=== PATIENT | male | born 1990 | race Caucasian/White ===

== ENCOUNTER 2018-11-11 04:19 | Emergency (ER) | payer OTHER ==
[~2018-11-11] VITALS: Ht 177.8 cm; Wt 95.3 kg
--- NOTE | 2018-11-11 04:35 | NUR ---
BIB SELF FROM HOME. AAOX4. BREATHING EVEN AND UNLABORED. AMBULATORY. C/O L CHEST PAIN SINCE 11PM, FEELING OF PRESSURE AND TIGHTNESS CURRENLTY AT 3/10. 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 PAIN RADIATES TO NECK. PT ALSO REPORTS TACHYCARDIA WHICH IS NOT PRESENT AT THE TIME OF ASSESSMENT. PT REPORTS FEELING NAUSEAS AND SOB PRIOR TO ARRIVAL. NON NOTED DURING ASSESSMENT. MD AT BEDSIDE FOR EVAL. AWAITING ORDERS
--- NOTE | 2018-11-11 04:35 | NUR ---
Note undone in EDM - 11/11/18 at 0506 by DAISY BIB SELF FROM HOME. AAOX4. BREATHING EVEN AND UNLABORED. AMBULATORY. C/O L CHEST PAIN SINCE 11PM, FEELING OF PRESSURE AND TIGHTNESS CURRENLTY AT 3/10. 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 PAIN RADIATES TO NECK. PT REPORTS FEELING NAUSEAS AND SOB PRIOR TO ARRIVAL. NON NOTED DURING ASSESSMENT. MD AT BEDSIDE FOR EVAL. AWAITING ORDERS
--- NOTE | 2018-11-11 04:50 | NUR ---
IV LINE OBTAINED ON R AC 18G. BLOOD DRAWN AND GIVEN TO FREELANCE TRANSLATOR AT BEDSIDE.
--- NOTE | 2018-11-11 04:52 | NUR ---
EMT AT BEDSIDE FOR EKG
[2018-11-11 04:56] LABS: BASOPHILS # (AUTO) 0.1 /CMM (0.0-0.2); BASOPHILS % (AUTO) 0.7 % (0.0-2.0); HEMATOCRIT 46 % (39-51); HEMOGLOBIN 16.4 g/dL (13.5-17.5); LYMPHOCYTES # (AUTO) 3.7 /CMM (0.8-4.8); MEAN CORPUSCULAR HGB CONC 35 g/dl (31.0-36.0); MEAN CORPUSCULAR VOLUME 94 fL (80-96); MONOCYTES # (AUTO) 0.9 /CMM (0.1-1.30); MONOCYTES % (AUTO) 9.5 % (2.0-12.0); NEUTROPHILS # (AUTO) 4.5 /CMM (1.8-8.9); NEUTROPHILS % (AUTO) 46.8 % (43.0-81.0); PLATELET COUNT (AUTO) 245 /CMM (150-450); RED BLOOD CELL COUNT(AUTO) 4.92 MIL/uL (4.5-6.0); WHITE BLOOD COUNT (AUTO) 9.6 K/uL (4.3-11.0)
[2018-11-11 05:04] LABS: CARBON DIOXIDE 28 mmol/L (21-32); CHLORIDE 102 mmol/L (98-107); CREATININE 1.1 mg/dL (0.6-1.3); GLUCOSE 128 mg/dL (74-106); POTASSIUM 3.6 mmol/L (3.5-5.1); SODIUM SERUM 140 mmol/L (136-145); UREA NITROGEN, BLOOD 19 mg/dL (7-18)
[2018-11-11] MEDS ORDERED: IOHEXOL-350 100 ML VIAL IV ONE (05:15)
[2018-11-11] MEDS ORDERED: CT SWABBABLE VALVE TRANS SET 1 EA INFUS.SET MC ONE (05:16)
[2018-11-11] MEDS ORDERED: IV NS 0.9% 250 ML IV ONE (05:16)
[2018-11-11 05:24] LABS: THYROID STIMULATING HORMONE 6.206 uIU/mL (0.358-3.74)
--- NOTE | 2018-11-11 05:30 | NUR ---
PT BEING WHEELED TO CT ON [facility]
--- NOTE | 2018-11-11 06:43 | NUR ---
Patient discharged to home in stable condition. Written and verbal after care instructions given. Patient verbalizes understanding of instruction.IV removed. Catheter intact and site benign. Pressure and 4x4 applied to site. No bleeding noted. Pt ambulatory with a steady gait
[2018-11-11 06:44] VITALS: BP 128/78
== END 2018-11-11 06:50 | disposition home or self-care (01) ==
LOC: ER 04:21
DX: R00.0 Tachycardia, unspecified (principal); R07.89 Other chest pain; F17.200 Nicotine dependence, unspecified, uncomplicated; F41.9 Anxiety disorder, unspecified; R00.2 Palpitations
CPT/HCPCS: 36415; 71045; 71275; 80048; 84439; 84443; 84484; 85025; 85378; 93005; 99284; 99406; J7050; Q9967